=== PATIENT | female | born 1955 | race Caucasian/White ===

== ENCOUNTER 2021-12-27 05:57 | Day surgery (SDC) | payer OTHER ==
[2021-12-25 10:33] VITALS: BMI 38.0
[2021-12-27] MEDS ORDERED: fentaNYL Citrate/PF 100 MCG/2 ML SYRINGE ONE (06:30)
[2021-12-27] MEDS ORDERED: EPINEPHrine 1 MG/ML AMP ONE (06:43)
[2021-12-27] MEDS ORDERED: Bupivacaine 0.25% HCL 30 ML VIAL ONE (06:43)
[2021-12-27] MEDS ORDERED: Lidocaine 2% 6 ML SYR ONE (06:50)
[2021-12-27] MEDS ORDERED: SUGAMMADEX SODIUM 200 MG/2 ML VIAL ONE (06:50)
[2021-12-27] MEDS ORDERED: Sodium Chloride 0.9% 100 ML ONE (07:21)
[2021-12-27] MEDS ORDERED: CEFAZOLIN 2 GM VIAL ONE (07:21)
[2021-12-27] MEDS ORDERED: Midazolam HCl 2 mg/2 ml Vial ONE (07:24)
[2021-12-27] MEDS ORDERED: Rocuronium Bromide 10 MG/ML (10ML VIAL) ONE (07:26)
[2021-12-27] MEDS ORDERED: Metoclopramide HCl 10 MG/2 ML VIAL ONE (07:26)
[2021-12-27] MEDS ORDERED: PROPOFOL 200 MG/20 ML VIAL ONE (07:26)
[2021-12-27] MEDS ORDERED: diphenhydrAMINE 50 MG/ML VIAL ONE (07:26)
[2021-12-27] MEDS ORDERED: Ondansetron PF 4 MG/2 ML Vial ONE (07:26)
[2021-12-27] MEDS ORDERED: Ketorolac Tromethamine 30 MG/ML VIAL ONE (07:26)
[2021-12-27] MEDS ORDERED: Fentanyl 100 MCG/2 ML VIAL ONE (08:48)
[2021-12-27] MEDS ORDERED: HYDROcodone/Acetaminophen 5/325 mg Tablet ONE (10:05)
== END 2021-12-27 11:08 | disposition home or self-care (01) ==
LOC: SDC 05:57
PROVIDERS: ATTEND Surgery
PROC: 8E0W4CZ Robotic Assisted Procedure of Trunk Region, Percutaneous Endoscopic Approach (ICD-10-PCS; principal; 2021-12-27)
PROC: 0WUF4JZ Supplement Abdominal Wall with Synthetic Substitute, Percutaneous Endoscopic Approach (ICD-10-PCS; principal; 2021-12-27)
DX: K43.9 Ventral hernia without obstruction or gangrene (principal); I10 Essential (primary) hypertension; E78.00 Pure hypercholesterolemia, unspecified; E11.9 Type 2 diabetes mellitus without complications; Z79.84 Long term (current) use of oral hypoglycemic drugs; Z79.899 Other long term (current) drug therapy
CPT/HCPCS: C1781; J0171; J0690; J1200; J1885; J2250; J2405; J2704; J2765; J3010; J3490; S0020